=== PATIENT | male | born 1980 | race Caucasian/White ===

== ENCOUNTER 2020-09-02 15:47 | Emergency (ER) | payer BC, SELFPAY ==
[2020-09-02 16:05] VITALS: BP 148/84; PULSE 88; RESP 18; TEMP 37.7; O2SAT 99
--- NOTE | 2020-09-02 16:31 | ED.SKABFB ---
HPI - Skin/Abscess/Foreign Bdy General Chief complaint: Skin/Abscess/Foreign Body Stated complaint: Sores on leg Time Seen by Provider: 09/02/20 16:31 Source: patient, RN notes reviewed and old records reviewed Mode of arrival: ambulatory Limitations: no limitations History of Present Illness HPI narrative: 40-year-old male who presents to [facility] with complaints of sores to his bilateral upper thighs which are red raised and itchy and also patches of red irritated skin on his lower legs frey areas for the past 2-3 weeks. Patient states that he has had these lesions like he has on his upper thighs previously an he was treated with steroids and they went away. 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 He denies any new soaps, lotions, foods or any different detergents. He states that his nutrition has not been that good lately eating fast foods and he has drank alcohol heavily at intervals this past few week. MD complaint: rash (lower legs) and lesion (upper legs thighs) Tetanus up to date: yes Location: LLE and RLE Severity: moderate Severity scale (1-10): 4 Quality: burning and other (itching) Pain Consistency: intermittent Relieving factors: none Exacerbating factors: palpation and movement Context: none Associated symptoms: itching and other (lesions on upper legs are tender to palpation and itchy) Treatments prior to arrival: NSAID and other (ice) Related Data Allergies Allergy/AdvReac Type Severity Reaction Status Date / Time No Known Allergies Allergy Unverified 07/06/15 14:51 Review of Systems Review of Systems: Narrative: CONSTITUTIONAL: Denies known fever, chills, or sweats. EYES: Denies visual changes, redness, or discharge. ENT: Denies rhinorrhea, congestion, sore throat, or otalgia. CARDIOVASCULAR: Denies chest pain, palpitations, or edema. RESPIRATORY: Denies cough or dyspnea. GASTROINTESTINAL: Denies abdominal pain, nausea, vomiting, or diarrhea. GENITOURINARY: Denies dysuria or hematuria. SKIN: Positive for lesions to upper legs and also rash type areas to lower legs with upper lesions being itchy and tender to palpation raised and irregular MUSCULOSKELETAL: Denies back pain, joint pain, or myalgia. NEUROLOGIC: Denies headache, numbness, or weakness. PSYCHIATRIC: Denies anxiety or depression. All systems reviewed & are unremarkable except as noted in HPI and below PMFSH Past Medical History Medical History (Updated 09/04/20 @ 17:06 by Chelo Alegria NP) Rash and nonspecific skin eruption Surgical History Surgical History (Updated 09/04/20 @ 17:04 by Chelo Alegria NP) H/O plastic surgery Family History Family History (Updated 09/04/20 @ 17:05 by Chelo Alegria NP) Other No significant family history Social History Social History (Updated 09/04/20 @ 17:05 by Chelo Alegria NP) Years smoked: 20 Smoking status: Current every day smoker Tobacco type: cigarettes Alcohol intake: current Substance use: never Living arrangements: with family Gender identity (if verbalized by the patient): Male Comments At time of signature, agree with nursing past medical, surgical, social and family history. There is no relevant family history pertinent to the presenting complaint Exam Narrative: Exam Narrative: GENERAL: Well-appearing, well-nourished, and in no acute distress. HEAD: Normocephalic, atraumatic. EYES: PERRLA and EOMI. ENT: Nares clear, no rhinorrhea or epistaxis. Mucous membranes moist.TM's normal with good light reflex, throat pink with no lesions, exudates or tonsil enlargement NECK: Supple.no lymphadenopathy CHEST: Clear to auscultation. No respiratory distress.SAO2 99% on room air. HEART: Regular rate and rhythm. No murmur heard. Normal peripheral pulses. ABDOMEN: Soft, nontender, nondistended, normal active bowel sounds. EXTREMITIES: Normal range of motion. No edema. SKIN: Warm, dry, r
== END 2020-09-02 16:50 | disposition home or self-care (01) ==
PROVIDERS: Emergency Provider Registered Nurse
DX: L03.116 Cellulitis of left lower limb (principal); L03.115 Cellulitis of right lower limb; L25.9 Unspecified contact dermatitis, unspecified cause; F17.210 Nicotine dependence, cigarettes, uncomplicated
CPT/HCPCS: 99203; G0463